=== PATIENT | male | born 1955 | race Caucasian/White ===

== ENCOUNTER 2019-05-23 16:33 | Inpatient (IN) | payer OTHER ==
[~2019-05-23 16:33] MED LIST: Iopamidol-370 76% 500 ML 1 ML ONE
[2019-05-23 17:07] LABS: #Basophils 0.1 thou/uL (0.0-0.2); #Eosinphils 0.1 thou/uL (0.0-0.7); #Lymphocytes 2.9 thou/uL (1.20-3.40); #Monocytes 1.8 thou/uL (0.11-0.59); #Neutrophils 7.2 thou/uL (1.40-6.50); %Basophils 0.8 % (0.0-1.0); %Eosinophils 0.5 % (0.0-10.0); %Lymphocytes 24.4 % (21.0-51.0); %Monocytes 14.8 % (0.0-10.0); %Neutrophils 59.6 % (42.0-75.0); Hemoglobin 13.2 g/dL (14.0-18.0); Mean Corpuscular HGB CONC 35.5 g/dL (32.0-36.0); Mean Corpuscular Hemoglobin 33.4 pg (27.0-31.0); Mean Corpuscular Volume 94.2 fL (78.0-98.0); Mean Platelet Volume 6.1 fL (7.4-10.4); Platelet Count 365 thou/uL (130-400); RBC Distribution Width 11.2 % (11.5-14.5); Red Blood Cell (RBC) Count 3.95 mill/uL (4.70-6.10)
--- NOTE | 2019-05-23 17:15 | RAD ---
Exam: Chest one view HISTORY:Cough. Comparison: None FINDINGS: Cardiac silhouette:Limited evaluation the heart due to increased opacification left hemithorax. Opaci fication is presumed to be due to pleural and parenchymal changes. Aorta: Grossly unremarkable Pulmonary vessels: Normal Costophrenic angles: Clear LUNGS: Left lower lobe opacification. Pneumothorax: None Osseous abnormalities: None IMPRESSION: 1. Pleural and parenchymal changes in the left lung base. Left lower lobe opacification may be due to atelectasis, aspiration or pneumonia. Continued surveillance is recommended. Transcribed Date/Time: 05/23/2019 5:37 PM
[2019-05-23] MEDS ORDERED: cefTRIAXone\\ROCEPHIN 2 GM VIAL ONE (17:22)
[2019-05-23] MEDS ORDERED: Azithromycin 500 MG VIAL ONE (17:22)
[2019-05-23 17:33] LABS: ALT (SGPT) 72 U/L (8-55); AST (SGOT) 93 U/L (5-34); Alkaline Phosphatase 76 U/L (40-110); Anion Gap 13 mmol/L (10-20); BUN (Urea Nitrogen) 9 mg/dL (8.4-25.7); Bilirubin, Total 1.1 mg/dL (0.2-1.2); Calc. Creatinine Clearance 0 mL/min (70-130); Calcium 8.2 mg/dL (7.8-10.44); Carbon Dioxide 25 mmol/L (23-31); Chloride 99 mmol/L (98-107); Estimated GFR-MDRD Greater than 90; Globulin 3.4 g/dL (2.4-3.5); Glucose 125 mg/dL (80-115); Potassium 3.1 mmol/L (3.5-5.1); Protein, Total 6.4 g/dL (5.8-8.1); Sodium 134 mmol/L (136-145)
--- NOTE | 2019-05-23 19:02 | CT ---
CT ANGIOGRAM OF CHEST: Date: 05-23-2019 Comparison: None. History: Dry cough, dizziness, weight loss, chest pain, nausea. Technique: Axial CT imaging at 2.5 mm intervals through the chest with IV contrast using CT angiogram protocol. Coronal and oblique sagittal 3D reformatted imaging obtained. FINDINGS: The upper abdomen demonstrates a grossly unremarkable appearance of the adrenal glands, the kidneys, the spleen, the pancreas, the liver and the gallbladder. There are a few mildly prominent nonspecific lymph nodes in the retrocrural region on the right measuring up to 6 mm. No lymphadenopathy is appreciated in the axillary regions. Mildly enlarged nodes are seen in the supe rior mediastinum measuring up to 8-9 mm. Enlarged right hilar lymph node measures 1.9 cm, enlarged salazar bcarinal lymph nodes measure up to 1.7 cm and there is a precarinal enlarged node measuring 1.1 cm. T here is a large lobulated soft tissue mass lesion centered in the left hilum which measures at least 7.3 x 5.2 cm. This mass lesion obliterates the bronchus supplying the lingula with associated lingula r volume loss. The mass also completely obliterates the left lower lobe bronchus proximally and the l eft lower lobe is completely collapsed. There is an associated moderate sized left pleural effusion. Within the remaining aerated portion of the left upper lobe there is coarse linear interstitial densi ty emanating from the left hilum extending out from the above described lobulated soft tissue mass co ncerning for lymphangitic spread of tumor. In addition, there are multiple small nodules scattered th roughout the left upper lobe anteriorly and medially measuring up to 7 mm, concerning for metastatic bronchogenic carcinoma. With respect to assessment for pulmonary arterial embolism, no evidence for p ulmonary arterial embolism is noted within the main right pulmonary artery. No central right sided pu lmonary arterial embolism. Secondary to motion artifact and timing of the contrast bolus, the distal pulmonary arterial branches are not optimally assessed within the right lower lobe and right upper lo be. On the left there is hazy decreased density within the pulmonary arterial structures supplying th e right upper and right lower lobe. Pulmonary arterial embolism within the left upper and left lower lobe cannot be fully excluded. There is no abrupt/focal filling defect and instead the relative hypoe nhancement of the pulmonary arterial structures suppling the left upper lobe demonstrates a more grad ual ill-defined configuration. This involves all pulmonary arteries supplying the left upper and left lower lobes. In addition to the possibility of this representing pulmonary embolism, possibly tumor embolism, this could also be the result of relatively slow pulmonary arterial supply into the left leta ng secondary to the lobulated left lung mass lesion. Review of the osseous structures demonstrates no discrete worrisome osseous lytic or blastic lesion. The abdominal aorta demonstrates extensive atherosclerotic calcification and there is an infrarenal a bdominal aortic aneurysm measuring up to approximately 3.3 x 3.2 cm. Multiple enlarged lymph nodes ar e noted in the natalie-hepatis, measuring up to 1.9 cm, likely on the basis of metastatic disease. IMPRESSION: 1. Large lobulated mass lesion in the left hilum obliterating the bronchus supplying the lingula and left lower lobe with associated complete collapse of the lingula and left lower lobe. This is consist ent with bronchogenic carcinoma until proven otherwise. There is evidence of metastatic disease with nodules noted elsewhere within the left upper lobe, mediastinal and right hilar lymphadenopathy, and upper abdominal lymphadenopathy. 2. Acute pulmonary arterial embolism cannot be completely excluded within the left lung as detailed a jaymie but the gradual hazy diminished enhancement involving the pulmonary arterial vasculature supplyi ng the left lower and left upper lobe is felt to most likely be on the basis of tumor infiltration an d altered hemodynamic secondary to severe obstructing mass lesion. 3. Infrarenal abdominal aortic aneursym. 4. Pleural effusions. 5. This study was reviewed in consultation with Dr. Farris, who is in agreement. Code T POS: [place]
[2019-05-23] MEDS ORDERED: Enoxaparin Sodium 100 MG/ML SYRINGE ONE (19:42)
[2019-05-23] MEDS ORDERED: D5 1/2 NS w/20 mEq KCL 1,000 ML IV SCH (22:15)
[2019-05-23] MEDS ORDERED: Senokot S 8.6-50 MG TAB PO PRN (22:16)
[2019-05-23] MEDS ORDERED: Calcium Carbonate 500 MG ChewTAB PO PRN (22:16)
--- NOTE | 2019-05-23 22:41 | HP ---
PRIMARY CARE PHYSICIAN: The patient is an inmate. CHIEF COMPLAINT: Shortness of breath with lightheadedness. HISTORY OF PRESENT ILLNESS: The patient is a 63-year-old white male, currently residing at [facility], presented to the emergency room with above complaints. Over the last 2 months, the patient has gradual worsening shortness of breath. He had a workup done in March 2019 that was consistent with lung mass. He was later transferred to a different unit. He never had a lung biopsy. His symptoms are progressively getting worse. He gets short of breath on [id number] exertion. He denies lower extremity swelling or orthopnea. There is dry cough without significant production. He denies recent immobilization or travel. No hemoptysis reported. The lightheadedness happens mainly when he is trying to stand up from a seated position. He denies any syncope. No chest pain, palpitations, diaphoresis reported. His O2 saturation by EMS was 91% on room air, that improved to 95% on 2 L nasal cannula. His temperature by EMS was 100.1. PAST MEDICAL HISTORY: 1. Hypertension. 2. Benign prostatic hypertrophy. 3. Season allergies. 4. Mild persistent asthma. PAST SURGICAL HISTORY: Appendectomy. ALLERGIES: NO KNOWN DRUG ALLERGIES. CURRENT HOME MEDICATION: Flovent 110 mcg b.i.d., Claritin 10 mg daily, ranitidine 150 mg b.i.d. SOCIAL HISTORY: The patient has a 50-pack year smoking history. He used to drink beer on a daily basis. He denies current use of alcohol or drug use. FAMILY HISTORY: Father with pancreatic cancer. REVIEW OF SYSTEMS: All other review of systems was reviewed and were found negative. PHYSICAL EXAMINATION: VITAL SIGNS: In the emergency room showed temperature 98.5, respirations 20, pulse of 120, blood pressure 105/84, O2 saturation 98% on room air. His temperature by EMS was 100.1 earlier. GENERAL: A 63-year-old male, in no apparent distress. HEENT: Head, atraumatic and normocephalic. Sclerae anicteric. Moist mucous membranes. No oral lesion. NECK: Supple. No JVD. No carotid bruit. LUNGS: Showed scattered rhonchi with rales mainly at the left base. There is decreased air entry on the left. No accessory muscle use. HEART: S1, S2 present. Regular. Tachycardic. No rubs or gallops. ABDOMEN: Soft, nontender. Bowel sounds present. EXTREMITIES: There is trace edema in bilateral lower extremity. No calf tenderness. SKIN: Warm and dry. LYMPH NODES: No palpable lymph nodes in the neck. PERIPHERAL VASCULAR: Radial pulses palpable bilaterally. MUSCULOSKELETAL: No joint swelling tenderness. LABORATORY FINDINGS: WBC 7.1 with hemoglobin 13.2, hematocrit 37.2, platelet 365. Chemistry showed sodium 134, potassium 3.1, chloride 99, bicarb 25, BUN 9, creatinine 0.65. AST of 93, ALT 72. Lactic acid 1.5. Telemetry monitoring by my review showed sinus tachycardia. Chest x-ray by my review showed pleural and parenchymal changes of the left lung base. CT angiogram of the chest showed large lobulated mass in the left hilum with questionable acute pulmonary embolism. There was also infrarenal abdominal aortic aneurysm with pleural effusion. IMPRESSION: 1. Acute hypoxic respiratory failure. 2. Suspected left lower lobe obstructive pneumonia with sepsis. 3. Left lung mass, suspected bronchogenic carcinoma. 4. Questionable acute pulmonary embolism. 5. Infrarenal abdominal aortic aneurysm. 6. Pleural effusion. 7. Mild intermittent asthma. 8. Gastroesophageal reflux disease. 9. Benign prostatic hypertrophy. 10. 50 pack-year smoking history. 11. Family history of pancreatic cancer. PLAN: The patient will be monitored on the medical floor as inpatient. We will start him on empiric antibiotics. He received ceftriaxone with azithromycin in the emergency room with 1 mg/kg of Lovenox. We will continue empiric antibiotics. Replace potassium. Keep him n.p.o. past midnight for possible bronchoscopy. Recheck labs in a.m. Nebulizer treatment. The patient understands the above plan of care. Job ID: [id number]
[2019-05-23] MEDS ORDERED: Piperacillin/Tazobactam 3.375 GM in Sodium Chloride 0.9% 100 ML IVPB SCH (22:45)
[2019-05-23] MEDS ORDERED: Potassium Chloride 20 MEQ TAB PO SCH (22:45)
[2019-05-23 23:22] LABS: Troponin I 0.108 ng/mL (< 0.028)
[2019-05-23 23:39] VITALS: BMI 27.3
[2019-05-24 05:37] LABS: Hemoglobin 11.9 g/dL (14.0-18.0); Mean Corpuscular HGB CONC 34.8 g/dL (32.0-36.0); Mean Corpuscular Volume 94.8 fL (78.0-98.0); Mean Platelet Volume 6.2 fL (7.4-10.4); Platelet Count 319 thou/uL (130-400); RBC Distribution Width 11.3 % (11.5-14.5); Red Blood Cell (RBC) Count 3.61 mill/uL (4.70-6.10); White Blood Cell (WBC) Count 9.6 thou/uL (4.8-10.8)
[2019-05-24] MEDS: Piperacillin/Tazobactam 3.375 GM in Sodium Chloride 0.9% 100 ML IVPB SCH ×3 (05:41→18:15)
[2019-05-24 06:45] LABS: ALT (SGPT) 55 U/L (8-55); AST (SGOT) 62 U/L (5-34); Albumin 2.5 g/dL (3.4-4.8); Alkaline Phosphatase 59 U/L (40-110); Anion Gap 9 mmol/L (10-20); BUN (Urea Nitrogen) 9 mg/dL (8.4-25.7); Bilirubin, Total 0.6 mg/dL (0.2-1.2); Calc. Creatinine Clearance 156 mL/min (70-130); Calcium 7.3 mg/dL (7.8-10.44); Carbon Dioxide 23 mmol/L (23-31); Chloride 108 mmol/L (98-107); Estimated GFR-MDRD Greater than 90; Glucose 127 mg/dL (80-115); Potassium 3.2 mmol/L (3.5-5.1); Protein, Total 5.5 g/dL (5.8-8.1); Sodium 137 mmol/L (136-145)
[2019-05-24 07:19] LABS: Band 1 % (5-11); Lymphocytes 22 % (21-51); MDiff Complete? YES; Monocytes 8 % (0-10); Neutrophil 68 % (42-75); Platelet Morphology Comment Appears Adequate; Polychromasia SLIGHT = 2-3 cells (100X) (0-2/hpf); Reactive Lymphocytes 1 % (0-10)
[2019-05-24] MEDS: Famotidine 20 MG TAB PO SCH ×2 (08:36→19:59)
[2019-05-24] MEDS: Saccharomyces boulardii 250 MG CAP PO SCH (08:36)
[2019-05-24] MEDS ORDERED: Lidocaine 1% PF 5 ML VIAL ONE (09:47)
[2019-05-24] MEDS ORDERED: PROPOFOL 200 MG/20 ML VIAL ONE (09:47)
[2019-05-24] MEDS ORDERED: Lidocaine 4% PF 5 ML AMP NEB SCH (10:30)
--- NOTE | 2019-05-24 10:40 | ULT ---
BILATERAL LOWER EXTREMITY VENOUS DUPLEX ULTRASOUND INCLUDING COLOR AND SPECTRAL DOPPLER IMAGING: HISTORY: Abnormal chest x-ray, cough, lung cancer, possible pulmonary artery embolism. FINDINGS: Examination performed from groin to ankle including visualized greater saphenous, common femoral, sup erficial femoral, profunda femoral, popliteal, trifurcation, and posterior tibial vein regions. Phas ic flow at all levels with normal compressibility and normal augmentation. No intraluminal thrombus. IMPRESSION: No evidence for deep venous thrombosis. POS: [facility]
--- NOTE | 2019-05-24 10:53 | CON ---
DATE OF CONSULTATION: 05/24/2019 CONSULTING PHYSICIAN: Cullen Yang MD REASON FOR CONSULTATION: Lung mass. HISTORY OF PRESENT ILLNESS: A 63-year-old [facility] inmate who was brought to the hospital with shortness of breath. He tells me he was diagnosed with lung mass in March. He has had no workup for that at all and does not know of any that was planned. In the ER here, he had a CT scan showing almost left lung collapse from endobronchial lesion in the left mainstem bronchus. He also has an associated pleural effusion. He has lost about 20 pounds of weight in the last 6 months. He denies any hemoptysis. He does have a heavy history of smoking, having quit 3 years ago when he came into the [facility]way system. PAST MEDICAL HISTORY: 1. Hypertension. 2. Asthma. 3. Chronic hepatitis C. PAST SURGICAL HISTORY: Appendectomy. ALLERGIES: NONE. MEDICATIONS: Prior to admission, 1. Flovent. 2. Claritin. 3. Ranitidine. SOCIAL HISTORY: 50+ pack-year history of smoking. Also used to drink beer on daily basis. FAMILY MEDICAL HISTORY: Remarkable for father with pancreatic cancer. REVIEW OF SYSTEMS: Twelve-point review of systems is otherwise negative. PHYSICAL EXAMINATION: VITAL SIGNS: Temperature 98.6, pulse 117, respirations 18, O2 saturation 94% on room air. He is awake, alert, in no distress. HEENT: Pupils are reactive. Sclerae are anicteric. Oropharynx clear. NECK: No adenopathy or JVD. LUNGS: Almost absent breath sounds on the left, clear on the right. CARDIOVASCULAR: S1 and S2, slightly tachycardic. ABDOMEN: Soft and nontender to palpation. No palpable liver. EXTREMITIES: No clubbing, cyanosis, or edema. LABORATORY DATA: White blood cell count 9.6, hematocrit 34.2, and platelet count 319. Sodium 137, potassium 3.2, BUN 9, creatinine 0.6, glucose 127. I reviewed the CT scan personally. The patient has extensive left hilar mass with postobstructive atelectasis. He has a left pleural effusion. He has mediastinal right hilar lymphadenopathy. ASSESSMENT: Lung mass, likely reflective of bronchogenic lung cancer. PLAN: Bronchoscopy with biopsy. Discussed risks with the patient including bleeding, infection, external pneumothorax. He agrees to proceed. Hopefully, this can be done this morning. Job ID: [id number]
[2019-05-24] MEDS ORDERED: Piperacillin/Tazobactam 3.375 GM VIAL ONE (11:19)
[2019-05-24] MEDS ORDERED: Sodium Chloride 0.9% 100 ML ONE (11:19)
[2019-05-24] MEDS ORDERED: Sodium Chloride 0.9% 10 ML ONE (11:20)
[2019-05-24] MEDS ORDERED: Fentanyl 100 MCG/2 ML VIAL ONE (11:44)
[2019-05-24] MEDS ORDERED: HYDROcodone/Chlorphen Polis 5 ML UDCUP PO SCH (14:00)
[2019-05-24] MEDS: Sodium Chloride 0.9% 1,000 ML IV SCH (14:26)
--- NOTE | 2019-05-24 15:42 | PDOC.HOSPP ---
- Subjective Encounter Date: 05/24/19 Encounter Time: 15:35 Subjective: f/u for L bronchogenic lung mass s/p bronchoscopy with bx on current Zosyn/ Zithromax. Still with SOB and low-grade fever. - Objective Vital Signs & Weight: Vital Signs (12 hours) Temp Pulse Resp BP BP Pulse Ox 05/24/19 14:42 112 H 18 97 05/24/19 14:22 99.7 F H 112 H 24 H 128/70 93 L 05/24/19 10:34 112 H 20 95 05/24/19 08:36 94 L 05/24/19 07:45 117 H 18 97 05/24/19 07:36 98.6 F 111 H 20 109/66 94 L 05/24/19 03:54 98.8 F 114 H 20 113/63 90 L Weight Admit Weight 201 lb 11.567 oz Weight 201 lb 11.567 oz Result Diagrams: 05/24/19 04:42 05/24/19 04:42 Additional Labs: Microbiology 05/24/19 12:44 Bronchial Washing Respiratory Culture - Preliminary 05/23/19 16:53 Venous blood - Right Arm Blood Culture - Preliminary Specimen has been received and culture in progress. No Growth to date. 05/23/19 16:53 Venous blood - Left Hand Blood Culture - Preliminary Specimen has been received and culture in progress. No Growth to date. Laboratory Tests 05/23/19 05/23/19 05/23/19 16:47 22:29 22:29 Sodium 134 L Potassium 3.1 L Magnesium 1.9 AST 93 H ALT 72 H Troponin I 0.108 H 05/24/19 04:42 Sodium Potassium Magnesium AST 62 H ALT 55 Troponin I Radiology Reviewed by me: Yes (CT chest - large, L bronchogenic mass likely malignant) Hospitalist ROS - Medication Medications: Active Medications Generic Name Dose Route Start Last Admin Trade Name Freq PRN Reason Stop Dose Admin Albuterol/Ipratropium 3 ml 05/23/19 22:30 05/24/19 14:42 Duoneb NEB 3 ml [id number] MASHA Administration Chlorphenir/Hydrocodone Polistirex 5 ml 05/24/19 14:00 05/24/19 14:54 Tussionex PO 05/24/19 16:00 5 ml NOW MASHA Administration Famotidine 20 mg 05/24/19 09:00 05/24/19 08:36 Pepcid PO 20 mg BID MASHA Administration Piperacillin Sod/Tazobactam 100 mls @ 200 mls/hr 05/24/19 06:00 05/24/19 13: 17 Sod 3.375 gm/ Sodium Chloride IVPB 100 mls Q6HR MASHA Administration Sodium Chloride 1,000 mls @ 50 mls/hr 05/24/19 10:30 05/24/19 14:26 Normal Saline 0.9% IV 1,000 mls .Q20H MASHA Administration Saccharomyces Boulardii 250 mg 05/24/19 09:00 05/24/19 08:36 Florastor PO 250 mg DAILY MASHA Administration - Exam General Appearance: NAD, awake alert General - other findings: alert, responsive Eye: PERRL, anicteric sclera ENT: normocephalic atraumatic, no oropharyngeal lesions Neck: supple, symmetric, no JVD, no thyromegaly Heart: RRR, no murmur, no gallops, no rubs, normal peripheral pulses Respiratory: rhonchi, tachypneic, wheezes Respiratory - other findings: + prolonged exp phase, exp wheezes, accessory muscle use Gastrointestinal: soft, non-tender, non-distended, normal bowel sounds Extremities: no cyanosis, no clubbing Skin: normal turgor, no lesions Neurological: cranial nerve grossly intact, no new deficit Musculoskeletal: normal tone, normal strength Psychiatric: normal affect, A&O x 3 Hosp A/P (1) Mass of left lung Code(s): R91.8 - OTHER NONSPECIFIC ABNORMAL FINDING OF LUNG FIELD Status: Acute Plan: s/p biopsy, likely bronchogenic carcinoma, appreciate Pulmonology assistance (2) Acute respiratory failure with hypoxia Code(s): J96.01 - ACUTE RESPIRATORY FAILURE WITH HYPOXIA Status: Acute Plan: Continue O2 supplementation, Duonebs prn (3) LLL pneumonia Code(s): J18.9 - PNEUMONIA, UNSPECIFIED ORGANISM Status: Acute Plan: Likely obstructive process given #1, continue Zosyn/Zithromax, Duonebs, add Dulera, add Solumedrol (4) Hypokalemia Code(s): E87.6 - HYPOKALEMIA Status: Acute Plan: KCL 40meq BID, serial K+ monitoring (5) Transaminitis Code(s): R74.0 - NONSPEC ELEV OF LEVELS OF TRANSAMNS & LACTIC ACID DEHYDRGNSE Status: Acute Plan: Likely due to hx of Hep C, serial monitoring - Plan continue antibiotics, psych social worker, respiratory therapy, DVT proph w/SCDs Stable currently Continue Zosyn/Zithromax Await lung bx results Medical oncology consult once bx results obtained KCL 40meq BID AM lab: CMP, CBC
--- NOTE | 2019-05-24 15:51 | OP ---
DATE OF PROCEDURE: 05/24/2019 PROCEDURE PERFORMED: Bronchoscopy. PREOPERATIVE DIAGNOSIS: Left lung mass. POSTOPERATIVE DIAGNOSIS: Left lung mass. ANESTHESIA: General through LMA. DESCRIPTION OF PROCEDURE: Time-out was taken prior to the procedure. The patient has signed informed consent prior to the procedure understanding the risks involved and agreed to proceed. The patient was placed on cardiopulmonary monitoring. Anesthesia placed an LMA after sedation had been given. An Olympus bronchoscope was placed through the LMA tube. The vocal cords were identified and inducted normally. The trachea, the right mainstem bronchus, right upper lobe, right middle lobe, and right lower lobe were normal except for some tenacious secretions present in the right lower lobe, which were suctioned and removed. The left mainstem bronchus was normal up to the bifurcation of the upper lobe and lower lobe, where hypertrophy was seen along the mucosa in the inferior aspect up to the apical posterior segment and lingular areas. There was also what appeared to be an accessory lobe, which may have been the superior segment. There was some bleeding present in the accessory lobe. Brushing was done in the accessory lobe, also in the left lingula and left upper lobe. Endobronchial biopsies were obtained from the irregular mucosa between the bifurcation in the lingular and apical posterior segment. There was some minimal bleeding. The procedure was tolerated well. He was sent to recovery in stable condition. Job ID: [id number]
[2019-05-24] MEDS: Potassium Chloride 20 MEQ TAB PO SCH (16:00)
[2019-05-24] MEDS: Azithromycin 500 MG in Sodium Chloride 0.9% 250 ML 250 ML IVPB SCH (16:01)
[2019-05-24] MEDS: methylPREDNISolone Sod Succ 40 MG VIAL IVP SCH (17:25)
[2019-05-24] MEDS: Guaifenesin DM 100-10/5 ML UDCUP PO PRN (18:15)
[2019-05-24] MEDS: Mometasone/Formoterol 120 PUFF INHALER INH SCH (19:14)
[2019-05-25] MEDS: methylPREDNISolone Sod Succ 40 MG VIAL IVP SCH ×4 (00:59→18:34)
[2019-05-25] MEDS: Piperacillin/Tazobactam 3.375 GM in Sodium Chloride 0.9% 100 ML IVPB SCH ×4 (00:59→18:34)
[2019-05-25 06:07] LABS: ALT (SGPT) 48 U/L (8-55); AST (SGOT) 49 U/L (5-34); Albumin 2.5 g/dL (3.4-4.8); Alkaline Phosphatase 57 U/L (40-110); Anion Gap 11 mmol/L (10-20); BUN (Urea Nitrogen) 8 mg/dL (8.4-25.7); Bilirubin, Total 0.6 mg/dL (0.2-1.2); Calc. Creatinine Clearance 161 mL/min (70-130); Calcium 7.6 mg/dL (7.8-10.44); Carbon Dioxide 22 mmol/L (23-31); Chloride 109 mmol/L (98-107); Estimated GFR-MDRD Greater than 90; Globulin 3.1 g/dL (2.4-3.5); Glucose 167 mg/dL (80-115); Potassium 3.6 mmol/L (3.5-5.1); Protein, Total 5.6 g/dL (5.8-8.1); Sodium 138 mmol/L (136-145)
[2019-05-25 06:35] LABS: Hemoglobin 11.7 g/dL (14.0-18.0); Mean Corpuscular HGB CONC 34.4 g/dL (32.0-36.0); Mean Corpuscular Hemoglobin 33.1 pg (27.0-31.0); Mean Corpuscular Volume 96.2 fL (78.0-98.0); Mean Platelet Volume 6.2 fL (7.4-10.4); Platelet Count 303 thou/uL (130-400); RBC Distribution Width 11.6 % (11.5-14.5); Red Blood Cell (RBC) Count 3.53 mill/uL (4.70-6.10); White Blood Cell (WBC) Count 9.9 thou/uL (4.8-10.8)
[2019-05-25] MEDS: Sodium Chloride 0.9% 1,000 ML IV SCH ×2 (07:49→18:35)
[2019-05-25 08:12] LABS: Band 5 % (5-11); Eosinophils 1 % (0-10); Lymphocytes 7 % (21-51); MDiff Complete? YES; Monocytes 4 % (0-10); Neutrophil 83 % (42-75); RBC Morphology Normal
[2019-05-25] MEDS: Mometasone/Formoterol 120 PUFF INHALER INH SCH ×2 (08:13→19:18)
[2019-05-25] MEDS: Famotidine 20 MG TAB PO SCH ×2 (08:34→20:03)
[2019-05-25] MEDS: Potassium Chloride 20 MEQ TAB PO SCH ×2 (08:34→16:13)
[2019-05-25] MEDS: Saccharomyces boulardii 250 MG CAP PO SCH (08:35)
--- NOTE | 2019-05-25 09:05 | PRG ---
DATE OF SERVICE: 05/25/2019 SUBJECTIVE: He feels okay. He had no acute complaints. Not coughing up any blood. OBJECTIVE: VITAL SIGNS: Temperature 97.7, pulse 93, respirations 20, O2 saturation 94%, and blood pressure 113/68. HEENT: Unremarkable. NECK: No adenopathy or JVD. CHEST: Diminished breath sounds left and clear right. CARDIAC: S1 and S2. Regular. ABDOMEN: Soft. EXTREMITIES: No edema. LABORATORY DATA: Sodium 138, potassium 3.6, chloride 109, CO2 of 22, BUN 8, creatinine 0.6, and calcium level 7.6. White blood cell count 9.9, hematocrit 33.9, and platelet count 303. ASSESSMENT: 1. Lung mass. 2. Status post bronchoscopy. PLAN: Awaiting pathology results. If path negative, then we will consider left-sided thoracentesis. Job ID: [id number]
[2019-05-25] MEDS: Guaifenesin DM 100-10/5 ML UDCUP PO PRN ×2 (12:01→18:53)
--- NOTE | 2019-05-25 14:24 | PQF ---
CLINICAL DOCUMENTATION IMPROVEMENT CLARIFICATION FORM: ICD-10 Updated PLEASE DO AN ADDENDUM TO THE PROGRESS NOTE WITH ANY DOCUMENTATION UPDATES OR ADDITIONS AND CARRY THROUGH TO DC SUMMARY. THANK YOU. DATE: 05/25/19 ATTN: DR. SALINAS Please exercise your independent, professional judgment in responding to the clarification form. Clinical indicators are provided on the bottom of this form for your review Please check appropriate box(s) to clarify if the following diagnosis has been ruled in or ruled out: "SEPSIS" [ ] Ruled in diagnosis [ ] Continue to treat [ ] Resolved [ x ] Ruled out diagnosis [ ] Cannot rule out diagnosis [ ] Other diagnosis [ ] Unable to determine In addition, please specify: Present on Admission (POA): [ ] Yes [ x ] No [ ] Unable to determine For continuity of documentation, please document condition throughout progress notes and discharge summary. Thank You. CLINICAL INDICATORS - SIGNS / SYMPTOMS / LABS / RESULTS AND LOCATION IN ER NOTE: "SEPSIS" PULSE 101 - 120 RR 24 TEMP 101 PER EMS H&P: "SEPSIS" WBC 05/23: 12.0 RISKS: PNEUMONIA (ER NOTE) TREATMENT: IV FLUIDS (ER-PRESENT) IV AZITHROMYCIN (ER-PRESENT) IV ROCEPHIN (ADMIN IN ER) IV ZOSYN (05/24-PRESENT) BLOOD CULTURES (05/23) BRONCHIAL WASHINGS (05/24) (This form is maintained as a part of the permanent medical record) 2014 [employer]. All Rights Reserved KALEB [email or web address] Office: [phone] [facility] HOSPITALKeya
--- NOTE | 2019-05-25 14:52 | PDOC.HOSPP ---
- Subjective Encounter Date: 05/25/19 Encounter Time: 14:50 Subjective: f/u for L-sided pulmonary mass s/p bronchoscopy with bx awaiting pathology. Receiving Zithromax/Zosyn currently. - Objective Vital Signs & Weight: Vital Signs (12 hours) Temp Pulse Resp BP BP Pulse Ox 05/25/19 12:03 97.9 F 109 H 20 141/85 H 93 L 05/25/19 10:34 111 H 16 93 L 05/25/19 08:34 94 L 05/25/19 08:11 93 15 93 L 05/25/19 07:29 97.7 F 93 20 113/68 94 L 05/25/19 04:00 98.1 F 97 20 109/65 92 L 05/25/19 03:26 95 14 95 Weight Admit Weight 201 lb 11.567 oz Weight 201 lb 11.567 oz I&O: 05/24/19 05/25/19 05/26/19 06:59 06:59 06:59 Intake Total 480 Balance 480 Result Diagrams: 05/25/19 05:16 05/25/19 05:16 Additional Labs: Microbiology 05/24/19 12:44 Bronchial Washing Respiratory Culture - Preliminary 05/23/19 16:53 Venous blood - Right Arm Blood Culture - Preliminary Specimen has been received and culture in progress. No Growth to date. 05/23/19 16:53 Venous blood - Left Hand Blood Culture - Preliminary Specimen has been received and culture in progress. No Growth to date. Laboratory Tests 05/23/19 05/23/19 05/23/19 16:47 22:29 22:29 Sodium 134 L Potassium 3.1 L Magnesium 1.9 AST 93 H ALT 72 H Troponin I 0.108 H 05/24/19 04:42 Sodium Potassium Magnesium AST 62 H ALT 55 Troponin I Hospitalist ROS - Medication Medications: Active Medications Generic Name Dose Route Start Last Admin Trade Name Freq PRN Reason Stop Dose Admin Albuterol/Ipratropium 3 ml 05/23/19 22:30 05/25/19 10:34 Duoneb NEB 3 ml [id number] MASHA Administration Famotidine 20 mg 05/24/19 09:00 05/25/19 08:34 Pepcid PO 20 mg BID MASHA Administration Guaifenesin/Dextromethorphan 15 ml 05/24/19 16:26 05/25/19 12:01 Robitussin Dm PO 15 ml Q4H PRN Administration Cough Azithromycin 500 mg/ Sodium 250 mls @ 250 mls/hr 05/24/19 17:00 05/24/19 16: 01 Chloride IVPB 250 mls 1700 MASHA Administration Piperacillin Sod/Tazobactam 100 mls @ 200 mls/hr 05/24/19 06:00 05/25/19 11: 47 Sod 3.375 gm/ Sodium Chloride IVPB 100 mls Q6HR MASHA Administration Sodium Chloride 1,000 mls @ 50 mls/hr 05/24/19 10:30 05/25/19 07:49 Normal Saline 0.9% IV Not Given .Q20H MASHA Methylprednisolone Sodium Succinate 40 mg 05/24/19 18:00 05/25/19 11:48 Solu-Medrol IVP 40 mg Q6HR MASHA Administration Mometasone Furoate/Formoterol Fumar 2 puff 05/24/19 18:30 05/25/19 08:13 Dulera 200 Mcg/5 Mcg Inhaler INH 2 puff BID-RT MASHA Administration Potassium Chloride 40 meq 05/24/19 17:00 05/25/19 08:34 K-Dur PO 40 meq BID-WM MASHA Administration Saccharomyces Boulardii 250 mg 05/24/19 09:00 05/25/19 08:35 Florastor PO 250 mg DAILY MASHA Administration - Exam General Appearance: NAD, awake alert Eye: PERRL, anicteric sclera ENT: normocephalic atraumatic, no oropharyngeal lesions Neck: supple, symmetric, no JVD, no thyromegaly Heart: RRR, no gallops, no rubs, normal peripheral pulses Respiratory - other findings: diminished and absent breath sounds in L base Gastrointestinal: soft, non-tender, non-distended, normal bowel sounds Extremities: no cyanosis, no clubbing, no edema Skin: normal turgor, no lesions Neurological: cranial nerve grossly intact, no new deficit Musculoskeletal: normal tone, normal strength Psychiatric: normal affect, A&O x 3 Hosp A/P (1) Mass of left lung Code(s): R91.8 - OTHER NONSPECIFIC ABNORMAL FINDING OF LUNG FIELD Status: Acute Plan: s/p bx and awaiting pathology, continue supportive mgmt (2) Acute respiratory failure with hypoxia Code(s): J96.01 - ACUTE RESPIRATORY FAILURE WITH HYPOXIA Status: Acute Plan: Improved with Duonebs, O2, see below for further mgmt (3) LLL pneumonia Code(s): J18.9 - PNEUMONIA, UNSPECIFIED ORGANISM Status: Acute Plan: Continue Zithromax/Zosyn, Duonebs, Solumedrol (4) Hypokalemia Code(s): E87.6 - HYPOKALEMIA Status: Acute Plan: KCL supplementation (5) Transaminitis Code(s): R74.0 - NONSPEC ELEV OF LEVELS OF TRANSAMNS & LACTIC ACID DEHYDRGNSE Status: Acute - Plan continue antibiotics, business services coordinator, respiratory therapy, out of bed/ambulate , DVT proph w/SCDs Stable currently Continue Zosyn/Zithromax Await lung bx results Medical oncology consult once bx results obtained KCL 40meq BID Continue Solumedrol AM lab: BMP
[2019-05-25] MEDS: Azithromycin 500 MG in Sodium Chloride 0.9% 250 ML 250 ML IVPB SCH (16:13)
[2019-05-26] MEDS: Piperacillin/Tazobactam 3.375 GM in Sodium Chloride 0.9% 100 ML IVPB SCH ×4 (00:37→18:08)
[2019-05-26] MEDS: methylPREDNISolone Sod Succ 40 MG VIAL IVP SCH ×4 (00:37→18:08)
[2019-05-26 06:43] LABS: Anion Gap 12 mmol/L (10-20); BUN (Urea Nitrogen) 13 mg/dL (8.4-25.7); Calc. Creatinine Clearance 156 mL/min (70-130); Carbon Dioxide 21 mmol/L (23-31); Chloride 111 mmol/L (98-107); Estimated GFR-MDRD Greater than 90; Glucose 174 mg/dL (80-115); Sodium 140 mmol/L (136-145)
[2019-05-26] MEDS: Mometasone/Formoterol 120 PUFF INHALER INH SCH ×2 (07:12→18:30)
[2019-05-26] MEDS: Sodium Chloride 0.9% 1,000 ML IV SCH ×2 (07:34→18:15)
[2019-05-26] MEDS: Famotidine 20 MG TAB PO SCH ×2 (08:21→20:44)
[2019-05-26] MEDS: Potassium Chloride 20 MEQ TAB PO SCH ×2 (08:21→16:52)
[2019-05-26] MEDS: Saccharomyces boulardii 250 MG CAP PO SCH (08:21)
--- NOTE | 2019-05-26 09:57 | PRG ---
DATE OF SERVICE: 05/26/2019 Mr. lBock's biopsy came back adenocarcinoma. The patient was informed of the results and I also discussed the results with Dr. Medina. 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 In any event, this is a disease that will have to be treated by Medical Oncology. I am not sure what the resources are through [facility], but the workup from my end is complete. I will defer to the hospitalist for further disposition. Job ID: [id number]
--- NOTE | 2019-05-26 11:54 | PDOC.HOSPP ---
- Subjective Encounter Date: 05/26/19 Encounter Time: 11:40 Subjective: f/u for L lung mass with bx showing adenocarcinoma. Continues to receive Zithromax/Zosyn/Duonebs/Solumedrol. SOB pronounced with any movement. - Objective Vital Signs & Weight: Vital Signs (12 hours) Temp Pulse Resp BP BP Pulse Ox 05/26/19 10:39 101 H 18 92 L 05/26/19 08:00 92 L 05/26/19 07:48 98 F 108 H 29 H 156/93 H 92 L 05/26/19 07:03 106 H 20 94 L 05/26/19 04:00 98.0 F 104 H 20 165/80 H 92 L 05/26/19 02:28 106 H 28 H 90 L Weight Admit Weight 201 lb 11.567 oz Weight 201 lb 11.567 oz I&O: 05/25/19 05/26/19 05/27/19 06:59 06:59 06:59 Intake Total 480 2095 Balance 480 2095 Result Diagrams: 05/25/19 05:16 05/26/19 05:51 Additional Labs: Microbiology 05/24/19 12:44 Bronchial Washing Respiratory Culture - Preliminary 05/23/19 16:53 Venous blood - Right Arm Blood Culture - Preliminary Specimen has been received and culture in progress. No Growth to date. 05/23/19 16:53 Venous blood - Left Hand Blood Culture - Preliminary Specimen has been received and culture in progress. No Growth to date. Laboratory Tests 05/23/19 05/23/19 05/23/19 16:47 22:29 22:29 Sodium 134 L Potassium 3.1 L Magnesium 1.9 AST 93 H ALT 72 H Troponin I 0.108 H 05/24/19 04:42 Sodium Potassium Magnesium AST 62 H ALT 55 Troponin I Hospitalist ROS - Medication Medications: Active Medications Generic Name Dose Route Start Last Admin Trade Name Freq PRN Reason Stop Dose Admin Albuterol/Ipratropium 3 ml 05/23/19 22:30 05/26/19 10:39 Duoneb NEB 3 ml [id number] MASHA Administration Famotidine 20 mg 05/24/19 09:00 05/26/19 08:21 Pepcid PO 20 mg BID MASHA Administration Guaifenesin/Dextromethorphan 15 ml 05/24/19 16:26 05/25/19 18:53 Robitussin Dm PO 15 ml Q4H PRN Administration Cough Azithromycin 500 mg/ Sodium 250 mls @ 250 mls/hr 05/24/19 17:00 05/25/19 16: 13 Chloride IVPB 250 mls 1700 MASHA Administration Piperacillin Sod/Tazobactam 100 mls @ 200 mls/hr 05/24/19 06:00 05/26/19 11: 24 Sod 3.375 gm/ Sodium Chloride IVPB 100 mls Q6HR MASHA Administration Sodium Chloride 1,000 mls @ 50 mls/hr 05/24/19 10:30 05/26/19 07:34 Normal Saline 0.9% IV Not Given .Q20H MASHA Methylprednisolone Sodium Succinate 40 mg 05/24/19 18:00 05/26/19 11:25 Solu-Medrol IVP 40 mg Q6HR MASHA Administration Mometasone Furoate/Formoterol Fumar 2 puff 05/24/19 18:30 05/26/19 07:12 Dulera 200 Mcg/5 Mcg Inhaler INH 2 puff BID-RT MASHA Administration Potassium Chloride 40 meq 05/24/19 17:00 05/26/19 08:21 K-Dur PO 40 meq BID-WM MASHA Administration Saccharomyces Boulardii 250 mg 05/24/19 09:00 05/26/19 08:21 Florastor PO 250 mg DAILY MASHA Administration - Exam General Appearance: NAD, awake alert Eye: PERRL, anicteric sclera ENT: normocephalic atraumatic, no oropharyngeal lesions ENT - other findings: multiple missing teeth, dental caries Neck: supple, symmetric, no JVD, no thyromegaly Heart: RRR, no murmur, no gallops, no rubs, normal peripheral pulses Respiratory: no ronchi, tachypneic Respiratory - other findings: diminished airflow L hemithorax, exp wheezes Gastrointestinal: soft, non-tender, non-distended, normal bowel sounds, no palpable masses Extremities: no cyanosis, no clubbing, no edema Skin: normal turgor, no lesions Neurological: cranial nerve grossly intact, no new deficit Musculoskeletal: normal tone, normal strength Psychiatric: normal affect, A&O x 3 Hosp A/P (1) Adenocarcinoma of lung Code(s): C34.90 - MALIGNANT NEOPLASM OF UNSP PART OF UNSP BRONCHUS OR LUNG Status: Acute Qualifiers: Laterality: left Qualified Code(s): C34.92 - Malignant neoplasm of unspecified part of left bronchus or lung Plan: Likely metastastic process involving R hilar region and potential adenopathy in abd, will need referral to [facility] for medical oncology follow up and definitive staging (2) Acute respiratory failure with hypoxia Code(s): J96.01 - ACUTE RESPIRATORY FAILURE WITH HYPOXIA Status: Acute Plan: Persistent, continue O2 support, Duonebs (3) LLL pneumonia Code(s): J18.9 - PNEUMONIA, UNSPECIFIED ORGANISM Status: Acute Plan: Continue Zosyn/Zithromax, Duonebs, O2 (4) Hypokalemia Code(s): E87.6 - HYPOKALEMIA Status: Acute Plan: Resolved (5) Transaminitis Code(s): R74.0 - NONSPEC ELEV OF LEVELS OF TRANSAMNS & LACTIC ACID DEHYDRGNSE Status: Acute - Plan continue antibiotics, social work assistant, respiratory therapy, DVT proph w/SCDs Stable currently Continue Zosyn/Zithromax CM for coordination of care through [facility] Medical oncology follow up at [facility] KCL 40meq BID Continue Solumedrol Likely will need outpt O2
[2019-05-26] MEDS: Azithromycin 500 MG in Sodium Chloride 0.9% 250 ML 250 ML IVPB SCH (16:52)
[2019-05-26] MEDS: Guaifenesin DM 100-10/5 ML UDCUP PO PRN (18:08)
[2019-05-27] MEDS: Piperacillin/Tazobactam 3.375 GM in Sodium Chloride 0.9% 100 ML IVPB SCH ×4 (00:27→17:11)
[2019-05-27] MEDS: methylPREDNISolone Sod Succ 40 MG VIAL IVP SCH ×4 (00:27→17:11)
[2019-05-27] MEDS: Mometasone/Formoterol 120 PUFF INHALER INH SCH ×2 (07:24→19:32)
[2019-05-27] MEDS: Famotidine 20 MG TAB PO SCH ×2 (08:08→20:48)
[2019-05-27] MEDS: Potassium Chloride 20 MEQ TAB PO SCH ×2 (08:08→17:11)
[2019-05-27] MEDS: Saccharomyces boulardii 250 MG CAP PO SCH (08:08)
--- NOTE | 2019-05-27 09:08 | PRG ---
DATE OF SERVICE: 05/27/2019 SUBJECTIVE: Mr. Block is about the same. He is dyspneic with any kind of exertion. OBJECTIVE: VITAL SIGNS: Temperature 97.8, pulse 102, respirations 20, O2 saturation 95%, blood pressure 158/93. HEENT: Unremarkable. NECK: No adenopathy or JVD. CHEST: Diminished breath sounds, left compared to right. CARDIAC: S1, S2. Regular. ABDOMEN: Soft. EXTREMITIES: No edema. ASSESSMENT: Lung cancer-likely stage IIIB or IV. PLAN: Needs Medical Oncology consultation or followup. No further recommendations at this time. Job ID: [id number]
[2019-05-27] MEDS: Sodium Chloride 0.9% 1,000 ML IV SCH ×2 (10:15→20:49)
[2019-05-27] MEDS: Azithromycin 500 MG in Sodium Chloride 0.9% 250 ML 250 ML IVPB SCH (18:03)
[2019-05-27] MEDS: Guaifenesin DM 100-10/5 ML UDCUP PO PRN (19:00)
--- NOTE | 2019-05-27 19:15 | PDOC.HOSPP ---
- Subjective Encounter Date: 05/27/19 Encounter Time: 19:15 Subjective: f/u for LLL bronchogenic adenocarcinoma and PNA currently receiving Zithromax/ Zosyn/Solumedrol. Remains SOB with minimal exertion. - Objective Vital Signs & Weight: Vital Signs (12 hours) Temp Pulse Resp BP Pulse Ox 05/27/19 15:36 97.8 F 97 20 163/92 H 94 L 05/27/19 14:14 100 16 05/27/19 11:22 98.3 F 100 26 H 151/86 H 94 L 05/27/19 10:45 104 H 16 05/27/19 08:00 95 05/27/19 07:44 97.8 F 102 H 28 H 158/93 H 95 05/27/19 07:26 109 H 16 Weight Admit Weight 201 lb 11.567 oz Weight 201 lb 11.567 oz I&O: 05/26/19 05/27/19 05/28/19 06:59 06:59 06:59 Intake Total 2095 4342 1909 Output Total 350 Balance 2095 4342 1559 Result Diagrams: 05/25/19 05:16 05/26/19 05:51 Additional Labs: Microbiology 05/24/19 12:44 Bronchial Washing Respiratory Culture - Preliminary 05/23/19 16:53 Venous blood - Right Arm Blood Culture - Preliminary Specimen has been received and culture in progress. No Growth to date. 05/23/19 16:53 Venous blood - Left Hand Blood Culture - Preliminary Specimen has been received and culture in progress. No Growth to date. Laboratory Tests 05/23/19 05/23/19 05/23/19 16:47 22:29 22:29 Sodium 134 L Potassium 3.1 L Magnesium 1.9 AST 93 H ALT 72 H Troponin I 0.108 H 05/24/19 04:42 Sodium Potassium Magnesium AST 62 H ALT 55 Troponin I Hospitalist ROS - Medication Medications: Active Medications Generic Name Dose Route Start Last Admin Trade Name Freq PRN Reason Stop Dose Admin Albuterol/Ipratropium 3 ml 05/23/19 22:30 05/27/19 14:14 Duoneb NEB 3 ml [id number] MASHA Administration Famotidine 20 mg 05/24/19 09:00 05/27/19 08:08 Pepcid PO 20 mg BID MASHA Administration Guaifenesin/Dextromethorphan 15 ml 05/24/19 16:26 05/27/19 19:00 Robitussin Dm PO 15 ml Q4H PRN Administration Cough Azithromycin 500 mg/ Sodium 250 mls @ 250 mls/hr 05/24/19 17:00 05/27/19 18: 03 Chloride IVPB 250 mls 1700 MASHA Administration Piperacillin Sod/Tazobactam 100 mls @ 200 mls/hr 05/24/19 06:00 05/27/19 17: 11 Sod 3.375 gm/ Sodium Chloride IVPB 100 mls Q6HR MASHA Administration Sodium Chloride 1,000 mls @ 50 mls/hr 05/24/19 10:30 05/27/19 10:15 Normal Saline 0.9% IV Not Given .Q20H MASHA Methylprednisolone Sodium Succinate 40 mg 05/24/19 18:00 05/27/19 17:11 Solu-Medrol IVP 40 mg Q6HR MASHA Administration Mometasone Furoate/Formoterol Fumar 2 puff 05/24/19 18:30 05/27/19 07:24 Dulera 200 Mcg/5 Mcg Inhaler INH 2 puff BID-RT MASHA Administration Potassium Chloride 40 meq 05/24/19 17:00 05/27/19 17:11 K-Dur PO 40 meq BID-WM MASHA Administration Saccharomyces Boulardii 250 mg 05/24/19 09:00 05/27/19 08:08 Florastor PO 250 mg DAILY MASHA Administration - Exam General Appearance: NAD, awake alert Eye: PERRL, anicteric sclera ENT: normocephalic atraumatic, no oropharyngeal lesions Neck: supple, symmetric, no JVD, no thyromegaly, no lymphadenopathy Heart: RRR, no murmur, no gallops, no rubs, normal peripheral pulses Respiratory: rhonchi, tachypneic Respiratory - other findings: R basilar segment with minimal sounds, exp wheeze bilat Gastrointestinal: soft, non-tender, non-distended, normal bowel sounds, no palpable masses Extremities: no cyanosis, no clubbing, no edema Skin: normal turgor, no lesions Neurological: cranial nerve grossly intact, no new deficit Musculoskeletal: normal tone, normal strength Psychiatric: normal affect, A&O x 3 Hosp A/P (1) Adenocarcinoma of lung Code(s): C34.90 - MALIGNANT NEOPLASM OF UNSP PART OF UNSP BRONCHUS OR LUNG Status: Acute Qualifiers: Laterality: left Qualified Code(s): C34.92 - Malignant neoplasm of unspecified part of left bronchus or lung Plan: Will need outpt follow through [facility] for intermediate mgmt and chemo/surgery (2) Acute respiratory failure with hypoxia Code(s): J96.01 - ACUTE RESPIRATORY FAILURE WITH HYPOXIA Status: Acute Plan: Continue pulmonary support, Duonebs/Solumedrol/O2 (3) LLL pneumonia Code(s): J18.9 - PNEUMONIA, UNSPECIFIED ORGANISM Status: Acute Plan: Continue Zithromax/Zosyn/Solumedrol (4) Hypokalemia Code(s): E87.6 - HYPOKALEMIA Status: Acute Plan: Improved, serial K+ monitoring (5) Transaminitis Code(s): R74.0 - NONSPEC ELEV OF LEVELS OF TRANSAMNS & LACTIC ACID DEHYDRGNSE Status: Acute - Plan continue antibiotics, social work therapist, respiratory therapy, out of bed/ambulate , DVT proph w/SCDs Stable currently Continue Zosyn/Zithromax CM for coordination of care through [facility] Medical oncology follow up at [facility] KCL 40meq BID Continue Solumedrol IV Likely will need outpt O2
[2019-05-28] MEDS: methylPREDNISolone Sod Succ 40 MG VIAL IVP SCH ×5 (00:04→23:37)
[2019-05-28] MEDS: Piperacillin/Tazobactam 3.375 GM in Sodium Chloride 0.9% 100 ML IVPB SCH ×5 (00:04→23:37)
[2019-05-28] MEDS: Guaifenesin DM 100-10/5 ML UDCUP PO PRN ×3 (05:51→19:52)
[2019-05-28] MEDS: Mometasone/Formoterol 120 PUFF INHALER INH SCH ×2 (07:24→19:27)
[2019-05-28] MEDS: Famotidine 20 MG TAB PO SCH ×2 (07:55→19:52)
[2019-05-28] MEDS: Potassium Chloride 20 MEQ TAB PO SCH (07:55)
[2019-05-28] MEDS: Saccharomyces boulardii 250 MG CAP PO SCH (07:56)
[2019-05-28 08:13] LABS: Fungus Stain Final report (.)
--- NOTE | 2019-05-28 08:50 | PDOC.HOSPP ---
- Subjective Encounter Date: 05/28/19 Encounter Time: 08:30 Subjective: f/u for lung adenocarcinoma not currently treated with associated PNA/effusion. States some increased cough this am. No fever or chills. - Objective Vital Signs & Weight: Vital Signs (12 hours) Temp Pulse Resp BP BP Pulse Ox 05/28/19 07:53 97.5 F L 100 149/90 H 94 L 05/28/19 07:22 92 16 94 L 05/28/19 04:00 98.1 F 92 20 159/90 H 94 L 05/28/19 02:13 12 05/27/19 22:26 100 16 Weight Admit Weight 201 lb 11.567 oz Weight 201 lb 11.567 oz I&O: 05/27/19 05/28/19 05/29/19 06:59 06:59 06:59 Intake Total 4342 3059 Output Total 350 Balance 4342 2709 Result Diagrams: 05/25/19 05:16 05/26/19 05:51 Additional Labs: Microbiology 05/24/19 12:44 Bronchial Washing Respiratory Culture - Preliminary 05/23/19 16:53 Venous blood - Right Arm Blood Culture - Preliminary Specimen has been received and culture in progress. No Growth to date. 05/23/19 16:53 Venous blood - Left Hand Blood Culture - Preliminary Specimen has been received and culture in progress. No Growth to date. Laboratory Tests 05/23/19 05/23/19 05/23/19 16:47 22:29 22:29 Sodium 134 L Potassium 3.1 L Magnesium 1.9 AST 93 H ALT 72 H Troponin I 0.108 H 05/24/19 04:42 Sodium Potassium Magnesium AST 62 H ALT 55 Troponin I Hospitalist ROS - Medication Medications: Active Medications Generic Name Dose Route Start Last Admin Trade Name Freq PRN Reason Stop Dose Admin Albuterol/Ipratropium 3 ml 05/23/19 22:30 05/28/19 07:22 Duoneb NEB 3 ml [id number] MASHA Administration Famotidine 20 mg 05/24/19 09:00 05/28/19 07:55 Pepcid PO 20 mg BID MASHA Administration Guaifenesin/Dextromethorphan 15 ml 05/24/19 16:26 05/28/19 05:51 Robitussin Dm PO 15 ml Q4H PRN Administration Cough Azithromycin 500 mg/ Sodium 250 mls @ 250 mls/hr 05/24/19 17:00 05/27/19 18: 03 Chloride IVPB 250 mls 1700 MASHA Administration Piperacillin Sod/Tazobactam 100 mls @ 200 mls/hr 05/24/19 06:00 05/28/19 05: 42 Sod 3.375 gm/ Sodium Chloride IVPB 100 mls Q6HR MASHA Administration Sodium Chloride 1,000 mls @ 50 mls/hr 05/24/19 10:30 05/27/19 20:49 Normal Saline 0.9% IV 1,000 mls .Q20H MASHA Administration Methylprednisolone Sodium Succinate 40 mg 05/24/19 18:00 05/28/19 05:42 Solu-Medrol IVP 40 mg Q6HR MASHA Administration Mometasone Furoate/Formoterol Fumar 2 puff 05/24/19 18:30 05/28/19 07:24 Dulera 200 Mcg/5 Mcg Inhaler INH 2 puff BID-RT MASHA Administration Potassium Chloride 40 meq 05/24/19 17:00 05/28/19 07:55 K-Dur PO 40 meq BID-WM MASHA Administration Saccharomyces Boulardii 250 mg 05/24/19 09:00 05/28/19 07:56 Florastor PO 250 mg DAILY MASHA Administration - Exam General Appearance: NAD, awake alert Eye: PERRL, anicteric sclera ENT: normocephalic atraumatic, no oropharyngeal lesions Neck: supple, symmetric, no JVD, no thyromegaly, no lymphadenopathy Heart: RRR, no murmur, no gallops, no rubs, normal peripheral pulses Respiratory - other findings: diminished in L lung field, exp wheezes, coarse sounds bilat Gastrointestinal: soft, non-tender, non-distended, normal bowel sounds, no palpable masses Extremities: no cyanosis, no clubbing, no edema Skin: normal turgor, no lesions Neurological: cranial nerve grossly intact, no new deficit Musculoskeletal: normal tone, normal strength, no muscle wasting Psychiatric: normal affect, A&O x 3 Hosp A/P (1) Adenocarcinoma of lung Code(s): C34.90 - MALIGNANT NEOPLASM OF UNSP PART OF UNSP BRONCHUS OR LUNG Status: Acute Qualifiers: Laterality: left Qualified Code(s): C34.92 - Malignant neoplasm of unspecified part of left bronchus or lung Plan: Plan for transfer to [facility] for further staging/planning treatment for lung CA (2) Acute respiratory failure with hypoxia Code(s): J96.01 - ACUTE RESPIRATORY FAILURE WITH HYPOXIA Status: Acute Plan: Continue O2 supplementation @ 2L/min NC, Duonebs, Prednisone (3) LLL pneumonia Code(s): J18.9 - PNEUMONIA, UNSPECIFIED ORGANISM Status: Acute Plan: Transition to Levaquin for outpatient mgmt (4) Hypokalemia Code(s): E87.6 - HYPOKALEMIA Status: Acute Plan: Improved, d/c KCL supplements (5) Transaminitis Code(s): R74.0 - NONSPEC ELEV OF LEVELS OF TRANSAMNS & LACTIC ACID DEHYDRGNSE Status: Acute - Plan continue antibiotics, home health care social worker, respiratory therapy, out of bed/ambulate , DVT proph w/SCDs Stable currently Continue Zosyn/Zithromax with plan to transition to Levaquin at d/c CM for coordination of care through [facility] Medical oncology follow up at [facility] d/c KCL Continue Solumedrol IV while inpt Setup for outpt O2
[2019-05-28] MEDS: Azithromycin 500 MG in Sodium Chloride 0.9% 250 ML 250 ML IVPB SCH (16:29)
[2019-05-28] MEDS: Sodium Chloride 0.9% 1,000 ML IV SCH ×2 (16:32→19:54)
[2019-05-28] MEDS: Acetaminophen 325 MG TAB PO PRN (18:05)
[2019-05-29] MEDS: Guaifenesin DM 100-10/5 ML UDCUP PO PRN ×4 (02:43→20:43)
[2019-05-29] MEDS: Piperacillin/Tazobactam 3.375 GM in Sodium Chloride 0.9% 100 ML IVPB SCH ×3 (05:27→17:48)
[2019-05-29] MEDS: methylPREDNISolone Sod Succ 40 MG VIAL IVP SCH ×3 (05:27→17:49)
[2019-05-29] MEDS: Mometasone/Formoterol 120 PUFF INHALER INH SCH ×2 (06:29→19:00)
[2019-05-29] MEDS: Famotidine 20 MG TAB PO SCH ×2 (08:59→20:43)
[2019-05-29] MEDS: Saccharomyces boulardii 250 MG CAP PO SCH (08:59)
[2019-05-29] MEDS: Sodium Chloride 0.9% 1,000 ML IV SCH (11:35)
--- NOTE | 2019-05-29 15:10 | PDOC.HOSPP ---
- Subjective Encounter Date: 05/29/19 Encounter Time: 11:30 Subjective: pt quite wheezing at rest. staffs nearby. - Objective Vital Signs & Weight: Vital Signs (12 hours) Temp Pulse Resp BP BP Pulse Ox 05/29/19 13:41 110 H 16 94 L 05/29/19 10:14 91 16 92 L 05/29/19 08:00 98.4 F 110 H 20 172/94 H 90 L 05/29/19 06:26 96 16 97 05/29/19 03:55 97.8 F 89 16 152/82 H 95 Weight Admit Weight 201 lb 11.567 oz Weight 201 lb 11.567 oz I&O: 05/28/19 05/29/19 05/30/19 06:59 06:59 06:59 Intake Total 3059 3000 Output Total 350 850 Balance 2709 2150 Result Diagrams: 05/25/19 05:16 05/26/19 05:51 Hospitalist ROS - Medication Medications: Active Medications Generic Name Dose Route Start Last Admin Trade Name Freq PRN Reason Stop Dose Admin Acetaminophen 650 mg 05/23/19 22:16 05/28/19 18:05 Tylenol PO 650 mg Q4H PRN Administration Headache/Fever/Mild Pain (1-3) Albuterol/Ipratropium 3 ml 05/23/19 22:30 05/29/19 13:41 Duoneb NEB 3 ml [id number] MASHA Administration Famotidine 20 mg 05/24/19 09:00 05/29/19 08:59 Pepcid PO 20 mg BID MASHA Administration Guaifenesin/Dextromethorphan 15 ml 05/24/19 16:26 05/29/19 11:35 Robitussin Dm PO 15 ml Q4H PRN Administration Cough Azithromycin 500 mg/ Sodium 250 mls @ 250 mls/hr 05/24/19 17:00 05/28/19 16: 29 Chloride IVPB 250 mls 1700 MASHA Administration Piperacillin Sod/Tazobactam 100 mls @ 200 mls/hr 05/24/19 06:00 05/29/19 11: 36 Sod 3.375 gm/ Sodium Chloride IVPB 100 mls Q6HR MASHA Administration Sodium Chloride 1,000 mls @ 50 mls/hr 05/24/19 10:30 05/29/19 11:35 Normal Saline 0.9% IV 1,000 mls .Q20H MASHA Administration Methylprednisolone Sodium Succinate 40 mg 05/24/19 18:00 05/29/19 11:36 Solu-Medrol IVP 40 mg Q6HR MASHA Administration Mometasone Furoate/Formoterol Fumar 2 puff 05/24/19 18:30 05/29/19 06:29 Dulera 200 Mcg/5 Mcg Inhaler INH 2 puff BID-RT MASHA Administration Saccharomyces Boulardii 250 mg 05/24/19 09:00 05/29/19 08:59 Florastor PO 250 mg DAILY MASHA Administration - Exam General Appearance: NAD, awake alert Eye: PERRL, anicteric sclera ENT: normocephalic atraumatic Neck: supple, symmetric Heart: RRR Respiratory: rhonchi, tachypneic, wheezes Gastrointestinal: soft, normal bowel sounds Extremities: no cyanosis Hosp A/P - Plan (1) Adenocarcinoma of lung Code(s): C34.90 - MALIGNANT NEOPLASM OF UNSP PART OF UNSP BRONCHUS OR LUNG Status: Acute Qualifiers: Laterality: left Qualified Code(s): C34.92 - Malignant neoplasm of unspecified part of left bronchus or lung Plan: Plan for transfer to [facility] for further staging/planning treatment for lung CA (2) Acute respiratory failure with hypoxia Code(s): J96.01 - ACUTE RESPIRATORY FAILURE WITH HYPOXIA Status: Acute Plan: Continue O2 supplementation @ 2L/min NC, Duonebs, Prednisone (3) LLL pneumonia Code(s): J18.9 - PNEUMONIA, UNSPECIFIED ORGANISM Status: Acute Plan: Transition to Levaquin for outpatient mgmt (4) Hypokalemia Code(s): E87.6 - HYPOKALEMIA Status: Acute Plan: Improved, d/c KCL supplements (5) Transaminitis Code(s): R74.0 - NONSPEC ELEV OF LEVELS OF TRANSAMNS & LACTIC ACID DEHYDRGNSE Status: Acute - Plan continue antibiotics, rn social services, respiratory therapy, out of bed/ambulate , DVT proph w/SCDs Stable currently Continue Zosyn/Zithromax with plan to transition to Levaquin at d/c CM for coordination of care through [facility] Medical oncology follow up at [facility] Continue Solumedrol IV while inpt-- as still ongoing wheezing. Setup for outpt O2
[2019-05-29] MEDS: Acetaminophen 325 MG TAB PO PRN ×2 (16:46→20:43)
[2019-05-29] MEDS: Azithromycin 500 MG in Sodium Chloride 0.9% 250 ML 250 ML IVPB SCH (16:46)
[2019-05-30] MEDS: Piperacillin/Tazobactam 3.375 GM in Sodium Chloride 0.9% 100 ML IVPB SCH ×3 (00:22→12:42)
[2019-05-30] MEDS: methylPREDNISolone Sod Succ 40 MG VIAL IVP SCH ×3 (00:22→12:42)
[2019-05-30] MEDS: Mometasone/Formoterol 120 PUFF INHALER INH SCH ×2 (06:41→19:11)
[2019-05-30] MEDS: Sodium Chloride 0.9% 1,000 ML IV SCH (06:42)
[2019-05-30] MEDS: Famotidine 20 MG TAB PO SCH ×2 (08:34→21:12)
[2019-05-30] MEDS: Saccharomyces boulardii 250 MG CAP PO SCH (08:35)
[2019-05-30] MEDS: Acetaminophen 325 MG TAB PO PRN ×2 (09:20→16:07)
[2019-05-30] MEDS: Guaifenesin DM 100-10/5 ML UDCUP PO PRN ×3 (09:20→21:13)
[2019-05-30] MEDS ORDERED: predniSONE 20 MG TAB PO SCH (12:45)
--- NOTE | 2019-05-30 16:25 | PDOC.HOSPP ---
- Subjective Encounter Date: 05/30/19 Encounter Time: 11:25 Subjective: pt slept ok, not much cough last night. wbcs trending down. no other c/o. - Objective Vital Signs & Weight: Vital Signs (12 hours) Temp Pulse Resp BP Pulse Ox 05/30/19 10:21 78 14 94 L 05/30/19 07:44 97.6 F 80 16 170/97 H 94 L 05/30/19 06:28 80 14 94 L Weight Admit Weight 201 lb 11.567 oz Weight 201 lb 11.567 oz I&O: 05/29/19 05/30/19 05/31/19 06:59 06:59 06:59 Intake Total 3000 Output Total 850 Balance 2150 Result Diagrams: 05/25/19 05:16 05/26/19 05:51 Hospitalist ROS - Medication Medications: Active Medications Generic Name Dose Route Start Last Admin Trade Name Freq PRN Reason Stop Dose Admin Acetaminophen 650 mg 05/23/19 22:16 05/30/19 16:07 Tylenol PO 650 mg Q4H PRN Administration Headache/Fever/Mild Pain (1-3) Albuterol/Ipratropium 3 ml 05/23/19 22:30 05/30/19 13:46 Duoneb NEB 3 ml [id number] MASHA Administration Famotidine 20 mg 05/24/19 09:00 05/30/19 08:34 Pepcid PO 20 mg BID MASHA Administration Guaifenesin/Dextromethorphan 15 ml 05/24/19 16:26 05/30/19 16:07 Robitussin Dm PO 15 ml Q4H PRN Administration Cough Sodium Chloride 1,000 mls @ 50 mls/hr 05/24/19 10:30 05/30/19 06:42 Normal Saline 0.9% IV Not Given .Q20H MASHA Mometasone Furoate/Formoterol Fumar 2 puff 05/24/19 18:30 05/30/19 06:41 Dulera 200 Mcg/5 Mcg Inhaler INH 2 puff BID-RT MASHA Administration Saccharomyces Boulardii 250 mg 05/24/19 09:00 05/30/19 08:35 Florastor PO 250 mg DAILY MASHA Administration - Exam General Appearance: NAD, awake alert Eye: PERRL, anicteric sclera ENT: normocephalic atraumatic Neck: supple, symmetric, no thyromegaly Heart: RRR Respiratory: normal chest expansion, no tachypnea, rhonchi, tachypneic Gastrointestinal: soft Neurological: cranial nerve grossly intact, no focal deficits Psychiatric: normal affect, oriented to place Hosp A/P - Plan (1) Adenocarcinoma of lung Code(s): C34.90 - MALIGNANT NEOPLASM OF UNSP PART OF UNSP BRONCHUS OR LUNG Status: Acute Qualifiers: Laterality: left Qualified Code(s): C34.92 - Malignant neoplasm of unspecified part of left bronchus or lung Plan: Plan for transfer to [facility] for further staging/planning treatment for lung CA (2) Acute respiratory failure with hypoxia Code(s): J96.01 - ACUTE RESPIRATORY FAILURE WITH HYPOXIA Status: Acute Plan: Continue O2 supplementation @ 2L/min NC, Duonebs, Prednisone (3) LLL pneumonia Code(s): J18.9 - PNEUMONIA, UNSPECIFIED ORGANISM Status: Acute Plan: Transition to Levaquin for outpatient mgmt (4) Hypokalemia Code(s): E87.6 - HYPOKALEMIA Status: Acute Plan: Improved, d/c KCL supplements (5) Transaminitis Code(s): R74.0 - NONSPEC ELEV OF LEVELS OF TRANSAMNS & LACTIC ACID DEHYDRGNSE Status: Acute - Plan continue antibiotics, social worker health services, respiratory therapy, out of bed/ambulate , DVT proph w/SCDs Stable currently Continue Zosyn/Zithromax with plan to transition to Levaquin at d/c CM for coordination of care through [facility] Medical oncology follow up at [facility] Continue Solumedrol IV while inpt-- as still ongoing wheezing. Setup for outpt O2. -continue the above care -onc. consult at [facility] - pending transfer to [facility], tomorrow?
[2019-05-31] MEDS: Sodium Chloride 0.9% 1,000 ML IV SCH ×3 (05:30→21:05)
[2019-05-31] MEDS: Guaifenesin DM 100-10/5 ML UDCUP PO PRN ×4 (06:07→23:00)
[2019-05-31] MEDS: Acetaminophen 325 MG TAB PO PRN ×3 (06:11→17:51)
[2019-05-31] MEDS: Mometasone/Formoterol 120 PUFF INHALER INH SCH ×2 (07:26→18:43)
[2019-05-31] MEDS: Saccharomyces boulardii 250 MG CAP PO SCH (08:47)
[2019-05-31] MEDS: predniSONE 20 MG TAB PO SCH (08:47)
--- NOTE | 2019-05-31 13:47 | PDOC.HOSPP ---
- Subjective Encounter Date: 05/31/19 Encounter Time: 11:30 Subjective: he is doing well, no acute c/o; I talk to CM regarding the transfer to [facility] - they are working on it. - Objective Vital Signs & Weight: Vital Signs (12 hours) Temp Pulse Resp BP Pulse Ox 05/31/19 10:46 87 16 94 L 05/31/19 08:00 175/95 H 05/31/19 07:24 92 16 94 L 05/31/19 04:00 97.9 F 96 20 172/85 H 93 L 05/31/19 02:19 86 12 Weight Admit Weight 201 lb 11.567 oz Weight 201 lb 11.567 oz Result Diagrams: 05/25/19 05:16 05/26/19 05:51 Hospitalist ROS - Medication Medications: Active Medications Generic Name Dose Route Start Last Admin Trade Name Freq PRN Reason Stop Dose Admin Acetaminophen 650 mg 05/23/19 22:16 05/31/19 12:33 Tylenol PO 650 mg Q4H PRN Administration Headache/Fever/Mild Pain (1-3) Albuterol/Ipratropium 3 ml 05/23/19 22:30 05/31/19 10:46 Duoneb NEB 3 ml [id number] MASHA Administration Famotidine 20 mg 05/24/19 09:00 05/30/19 21:12 Pepcid PO 20 mg BID MASHA Administration Guaifenesin/Dextromethorphan 15 ml 05/24/19 16:26 05/31/19 12:32 Robitussin Dm PO 15 ml Q4H PRN Administration Cough Sodium Chloride 1,000 mls @ 50 mls/hr 05/24/19 10:30 05/31/19 08:46 Normal Saline 0.9% IV Not Given .Q20H MASHA Levofloxacin 750 mg 05/31/19 06:00 05/31/19 06:07 Levaquin PO 750 mg 0600 MASHA Administration Mometasone Furoate/Formoterol Fumar 2 puff 05/24/19 18:30 05/31/19 07:26 Dulera 200 Mcg/5 Mcg Inhaler INH 2 puff BID-RT MASHA Administration Prednisone 40 mg 05/31/19 08:00 05/31/19 08:47 Prednisone PO 40 mg QAM-WM MASHA Administration Saccharomyces Boulardii 250 mg 05/24/19 09:00 05/31/19 08:47 Florastor PO 250 mg DAILY MASHA Administration - Exam General Appearance: NAD, awake alert ENT: normocephalic atraumatic Neck: supple Heart: RRR Respiratory: CTAB Gastrointestinal: normal bowel sounds Psychiatric: normal affect Hosp A/P - Plan (1) Adenocarcinoma of lung Code(s): C34.90 - MALIGNANT NEOPLASM OF UNSP PART OF UNSP BRONCHUS OR LUNG Status: Acute Qualifiers: Laterality: left Qualified Code(s): C34.92 - Malignant neoplasm of unspecified part of left bronchus or lung Plan: Plan for transfer to [facility] for further staging/planning treatment for lung CA (2) Acute respiratory failure with hypoxia Code(s): J96.01 - ACUTE RESPIRATORY FAILURE WITH HYPOXIA Status: Acute Plan: Continue O2 supplementation @ 2L/min NC, Duonebs, Prednisone (3) LLL pneumonia Code(s): J18.9 - PNEUMONIA, UNSPECIFIED ORGANISM Status: Acute Plan: Transition to Levaquin for outpatient mgmt (4) Hypokalemia Code(s): E87.6 - HYPOKALEMIA Status: Acute Plan: Improved, d/c KCL supplements (5) Transaminitis Code(s): R74.0 - NONSPEC ELEV OF LEVELS OF TRANSAMNS & LACTIC ACID DEHYDRGNSE Status: Acute - Plan continue antibiotics, social problems specialist, respiratory therapy, out of bed/ambulate , DVT proph w/SCDs Stable currently Continue Zosyn/Zithromax with plan to transition to Levaquin at d/c -I talk to CM regarding the transfer to [facility] - they are working on it. -not sure, how long he needs to stay here, bef. transfer is effective. -instead of waiting, will c/s oncologist for their eval and help.
[2019-05-31] MEDS: Famotidine 20 MG TAB PO SCH ×2 (15:17→21:05)
[2019-06-01] MEDS: Guaifenesin DM 100-10/5 ML UDCUP PO PRN (05:31)
[2019-06-01] MEDS: Mometasone/Formoterol 120 PUFF INHALER INH SCH ×2 (07:05→18:08)
[2019-06-01] MEDS: Famotidine 20 MG TAB PO SCH ×2 (09:29→20:25)
[2019-06-01] MEDS: Acetaminophen 325 MG TAB PO PRN (09:29)
[2019-06-01] MEDS: Saccharomyces boulardii 250 MG CAP PO SCH (09:29)
[2019-06-01] MEDS: predniSONE 20 MG TAB PO SCH (09:29)
--- NOTE | 2019-06-01 13:27 | PDOC.HOSPP ---
- Subjective Encounter Date: 06/01/19 Encounter Time: 11:25 Subjective: Oncology consult at his facility, and this has been conveyed to the pt; CM note reviewed, pending bed availability at [facility]. lots of dry cough, no hemoptysis. - Objective Vital Signs & Weight: Vital Signs (12 hours) Temp Pulse Resp BP BP Pulse Ox 06/01/19 10:42 97 16 95 06/01/19 07:50 97.9 F 97 18 157/82 H 94 L 06/01/19 06:59 92 16 94 L 06/01/19 04:00 98.2 F 79 20 159/91 H 94 L Weight Admit Weight 201 lb 11.567 oz Weight 201 lb 11.567 oz Result Diagrams: 05/25/19 05:16 05/26/19 05:51 Hospitalist ROS - Medication Medications: Active Medications Generic Name Dose Route Start Last Admin Trade Name Freq PRN Reason Stop Dose Admin Acetaminophen 650 mg 05/23/19 22:16 06/01/19 09:29 Tylenol PO 650 mg Q4H PRN Administration Headache/Fever/Mild Pain (1-3) Albuterol/Ipratropium 3 ml 05/23/19 22:30 06/01/19 10:42 Duoneb NEB 3 ml [id number] MASHA Administration Famotidine 20 mg 05/24/19 09:00 06/01/19 09:29 Pepcid PO 20 mg BID MASHA Administration Guaifenesin/Dextromethorphan 15 ml 05/24/19 16:26 06/01/19 05:31 Robitussin Dm PO 15 ml Q4H PRN Administration Cough Sodium Chloride 1,000 mls @ 50 mls/hr 05/24/19 10:30 05/31/19 21:05 Normal Saline 0.9% IV 1,000 mls .Q20H MASHA Administration Levofloxacin 750 mg 05/31/19 06:00 06/01/19 05:31 Levaquin PO 750 mg 0600 MASHA Administration Mometasone Furoate/Formoterol Fumar 2 puff 05/24/19 18:30 06/01/19 07:05 Dulera 200 Mcg/5 Mcg Inhaler INH 2 puff BID-RT MASHA Administration Prednisone 40 mg 05/31/19 08:00 06/01/19 09:29 Prednisone PO 40 mg QAM-WM MASHA Administration Saccharomyces Nikole 250 mg 05/24/19 09:00 06/01/19 09:29 Florastor PO 250 mg DAILY MASHA Administration - Exam General Appearance: NAD, awake alert Eye: PERRL ENT: normocephalic atraumatic Neck: supple, symmetric Heart: RRR Respiratory: CTAB Gastrointestinal: soft, non-tender, normal bowel sounds Hosp A/P - Plan (1) Adenocarcinoma of lung Code(s): C34.90 - MALIGNANT NEOPLASM OF UNSP PART OF UNSP BRONCHUS OR LUNG Status: Acute Qualifiers: Laterality: left Qualified Code(s): C34.92 - Malignant neoplasm of unspecified part of left bronchus or lung Plan: Plan for transfer to [facility] for further staging/planning treatment for lung CA (2) Acute respiratory failure with hypoxia Code(s): J96.01 - ACUTE RESPIRATORY FAILURE WITH HYPOXIA Status: Acute Plan: Continue O2 supplementation @ 2L/min NC, Duonebs, Prednisone (3) LLL pneumonia Code(s): J18.9 - PNEUMONIA, UNSPECIFIED ORGANISM Status: Acute Plan: Transition to Levaquin for outpatient mgmt (4) Hypokalemia Code(s): E87.6 - HYPOKALEMIA Status: Acute Plan: Improved, d/c KCL supplements (5) Transaminitis Code(s): R74.0 - NONSPEC ELEV OF LEVELS OF TRANSAMNS & LACTIC ACID DEHYDRGNSE Status: Acute - Plan continue antibiotics, social work msw, respiratory therapy, out of bed/ambulate , DVT proph w/SCDs Stable currently -s/p Zosyn/Zithromax --transitioned to Levaquin at d/c -I talk to CM regarding the transfer to [facility] - they are working on it. -instead of waiting, will c/s oncologist for their eval and help. > has to be done at [facility]. -pending transfer, bed availability at [facility].
[2019-06-01] MEDS ORDERED: Guaifenesin DM 100-10/5 ML UDCUP PO SCH (13:30)
[2019-06-01] MEDS: Guaifenesin DM 100-10/5 ML UDCUP PO SCH ×2 (17:50→20:25)
[2019-06-02] MEDS: Guaifenesin DM 100-10/5 ML UDCUP PO SCH ×6 (01:13→20:30)
[2019-06-02] MEDS: Mometasone/Formoterol 120 PUFF INHALER INH SCH ×2 (07:12→18:09)
[2019-06-02] MEDS: Saccharomyces boulardii 250 MG CAP PO SCH (09:08)
[2019-06-02] MEDS: predniSONE 20 MG TAB PO SCH (09:08)
[2019-06-02] MEDS: Famotidine 20 MG TAB PO SCH ×2 (09:08→20:31)
--- NOTE | 2019-06-02 16:02 | PDOC.HOSPP ---
- Subjective Encounter Date: 06/02/19 Encounter Time: 10:40 Subjective: pt having no issues but feels overall fatigued, not feeling good, no specific c/ o like CP, SOB, cough or lack of sleep. just fatigued. - Objective Vital Signs & Weight: Vital Signs (12 hours) Temp Pulse Resp BP Pulse Ox 06/02/19 14:17 93 16 97 06/02/19 10:42 92 16 94 L 06/02/19 08:00 92 L 06/02/19 07:46 97.7 F 100 20 144/84 H 92 L 06/02/19 07:15 90 16 96 06/02/19 07:12 85 16 97 Weight Admit Weight 201 lb 11.567 oz Weight 201 lb 11.567 oz Result Diagrams: 05/25/19 05:16 05/26/19 05:51 Hospitalist ROS - Medication Medications: Active Medications Generic Name Dose Route Start Last Admin Trade Name Freq PRN Reason Stop Dose Admin Acetaminophen 650 mg 05/23/19 22:16 06/01/19 09:29 Tylenol PO 650 mg Q4H PRN Administration Headache/Fever/Mild Pain (1-3) Albuterol/Ipratropium 3 ml 05/23/19 22:30 06/02/19 14:17 Duoneb NEB 3 ml [id number] MASHA Administration Famotidine 20 mg 05/24/19 09:00 06/02/19 09:08 Pepcid PO 20 mg BID MASHA Administration Guaifenesin/Dextromethorphan 15 ml 06/01/19 17:00 06/02/19 12:29 Robitussin Dm PO 15 ml Q4HR MASHA Administration Sodium Chloride 1,000 mls @ 50 mls/hr 05/24/19 10:30 05/31/19 21:05 Normal Saline 0.9% IV 1,000 mls .Q20H MASHA Administration Levofloxacin 750 mg 05/31/19 06:00 06/02/19 05:15 Levaquin PO 750 mg 0600 MASHA Administration Mometasone Furoate/Formoterol Fumar 2 puff 05/24/19 18:30 06/02/19 07:12 Dulera 200 Mcg/5 Mcg Inhaler INH 2 puff BID-RT MASHA Administration Prednisone 40 mg 05/31/19 08:00 06/02/19 09:08 Prednisone PO 40 mg QAM-WM MASHA Administration Saccharomyces Nikole 250 mg 05/24/19 09:00 06/02/19 09:08 Florastor PO 250 mg DAILY MASHA Administration - Exam General Appearance: NAD, awake alert Eye: PERRL ENT: normocephalic atraumatic Neck: supple Heart: RRR Respiratory: CTAB Gastrointestinal: normal bowel sounds Neurological: cranial nerve grossly intact, no focal deficits Musculoskeletal: normal tone Hosp A/P - Plan (1) Adenocarcinoma of lung Code(s): C34.90 - MALIGNANT NEOPLASM OF UNSP PART OF UNSP BRONCHUS OR LUNG Status: Acute Qualifiers: Laterality: left Qualified Code(s): C34.92 - Malignant neoplasm of unspecified part of left bronchus or lung Plan: Plan for transfer to [facility] for further staging/planning treatment for lung CA (2) Acute respiratory failure with hypoxia Code(s): J96.01 - ACUTE RESPIRATORY FAILURE WITH HYPOXIA Status: Acute Plan: Continue O2 supplementation @ 2L/min NC, Duonebs, Prednisone (3) LLL pneumonia Code(s): J18.9 - PNEUMONIA, UNSPECIFIED ORGANISM Status: Acute Plan: Transition to Levaquin for outpatient mgmt (4) Hypokalemia Code(s): E87.6 - HYPOKALEMIA Status: Acute Plan: Improved, d/c KCL supplements (5) Transaminitis Code(s): R74.0 - NONSPEC ELEV OF LEVELS OF TRANSAMNS & LACTIC ACID DEHYDRGNSE Status: Acute - Plan continue antibiotics, public health social worker, respiratory therapy, out of bed/ambulate , DVT proph w/SCDs Stable currently -s/p Zosyn/Zithromax --transitioned to Levaquin at d/c -I talk to CM regarding the transfer to [facility] - they are working on it. -instead of waiting, will c/s oncologist for their eval and help. > has to be done at [facility]. -pending transfer, bed availability at [facility]. Can we try to transfer him to [facility]? [facility]? instead of waiting for the bed availability at [facility] i will d/w CM.
[2019-06-02] MEDS: Sodium Chloride 0.9% 1,000 ML IV SCH ×2 (17:31→20:32)
[2019-06-03] MEDS: Guaifenesin DM 100-10/5 ML UDCUP PO SCH ×6 (01:50→20:10)
[2019-06-03] MEDS: Mometasone/Formoterol 120 PUFF INHALER INH SCH ×2 (06:54→18:55)
[2019-06-03] MEDS: Saccharomyces boulardii 250 MG CAP PO SCH (08:07)
[2019-06-03] MEDS: Famotidine 20 MG TAB PO SCH ×2 (08:07→20:10)
[2019-06-03] MEDS: predniSONE 20 MG TAB PO SCH (08:07)
--- NOTE | 2019-06-03 13:04 | PDOC.HOSPP ---
- Subjective Encounter Date: 06/03/19 Encounter Time: 09:30 non-verbal Subjective: doing well, talk to CM, awaiting for bed. pt still feels overall not good. - Objective Vital Signs & Weight: Vital Signs (12 hours) Temp Pulse Resp BP Pulse Ox 06/03/19 10:30 92 16 94 L 06/03/19 07:18 98 F 96 18 140/79 93 L 06/03/19 06:53 94 20 94 L 06/03/19 02:16 95 16 94 L Weight Admit Weight 201 lb 11.567 oz Weight 201 lb 11.567 oz I&O: 06/02/19 06/03/19 06/04/19 06:59 06:59 06:59 Intake Total 950 Output Total 200 Balance 750 Result Diagrams: 05/25/19 05:16 05/26/19 05:51 Hospitalist ROS - Medication Medications: Active Medications Generic Name Dose Route Start Last Admin Trade Name Freq PRN Reason Stop Dose Admin Acetaminophen 650 mg 05/23/19 22:16 06/01/19 09:29 Tylenol PO 650 mg Q4H PRN Administration Headache/Fever/Mild Pain (1-3) Albuterol/Ipratropium 3 ml 05/23/19 22:30 06/03/19 10:30 Duoneb NEB 3 ml [id number] MASHA Administration Famotidine 20 mg 05/24/19 09:00 06/03/19 08:07 Pepcid PO 20 mg BID MASHA Administration Guaifenesin/Dextromethorphan 15 ml 06/01/19 17:00 06/03/19 12:00 Robitussin Dm PO 15 ml Q4HR MASHA Administration Sodium Chloride 1,000 mls @ 50 mls/hr 05/24/19 10:30 06/02/19 20:32 Normal Saline 0.9% IV 1,000 mls .Q20H MASHA Administration Levofloxacin 750 mg 05/31/19 06:00 06/03/19 05:38 Levaquin PO 750 mg 0600 MASHA Administration Mometasone Furoate/Formoterol Fumar 2 puff 05/24/19 18:30 06/03/19 06:54 Dulera 200 Mcg/5 Mcg Inhaler INH 2 puff BID-RT MASHA Administration Prednisone 40 mg 05/31/19 08:00 06/03/19 08:07 Prednisone PO 40 mg QAM-WM MASHA Administration Saccharomyces Nikole 250 mg 05/24/19 09:00 06/03/19 08:07 Florastor PO 250 mg DAILY MASHA Administration - Exam General Appearance: NAD, awake alert Eye: PERRL ENT: normocephalic atraumatic Neck: supple Heart: RRR Respiratory: CTAB Gastrointestinal: normal bowel sounds Hosp A/P - Plan (1) Adenocarcinoma of lung Code(s): C34.90 - MALIGNANT NEOPLASM OF UNSP PART OF UNSP BRONCHUS OR LUNG Status: Acute Qualifiers: Laterality: left Qualified Code(s): C34.92 - Malignant neoplasm of unspecified part of left bronchus or lung Plan: Plan for transfer to [facility] for further staging/planning treatment for lung CA (2) Acute respiratory failure with hypoxia Code(s): J96.01 - ACUTE RESPIRATORY FAILURE WITH HYPOXIA Status: Acute Plan: Continue O2 supplementation @ 2L/min NC, Duonebs, Prednisone (3) LLL pneumonia Code(s): J18.9 - PNEUMONIA, UNSPECIFIED ORGANISM Status: Acute Plan: Transition to Levaquin for outpatient mgmt (4) Hypokalemia Code(s): E87.6 - HYPOKALEMIA Status: Acute Plan: Improved, d/c KCL supplements (5) Transaminitis Code(s): R74.0 - NONSPEC ELEV OF LEVELS OF TRANSAMNS & LACTIC ACID DEHYDRGNSE Status: Acute - Plan continue antibiotics, social scientist, respiratory therapy, out of bed/ambulate , DVT proph w/SCDs Stable currently -s/p Zosyn/Zithromax --transitioned to Levaquin -I talk to CM regarding the transfer to [facility] - they are working on it. -instead of waiting, will c/s oncologist for their eval and help. > has to be done at [facility]. -pending transfer, bed availability at [facility]. on prednisone and levaquin. pending placement.
[2019-06-03] MEDS: Acetaminophen 325 MG TAB PO PRN (20:15)
[2019-06-04] MEDS: Guaifenesin DM 100-10/5 ML UDCUP PO SCH ×3 (01:54→07:58)
[2019-06-04] MEDS: Mometasone/Formoterol 120 PUFF INHALER INH SCH (07:07)
[2019-06-04] MEDS: predniSONE 20 MG TAB PO SCH (07:58)
[2019-06-04] MEDS: Saccharomyces boulardii 250 MG CAP PO SCH (07:58)
[2019-06-04] MEDS: Famotidine 20 MG TAB PO SCH (07:58)
[2019-06-04 08:18] VITALS: BP 150/89; TEMP 98
--- NOTE | 2019-06-05 01:01 | DIS ---
DATE OF ADMISSION: 05/23/2019 DATE OF DISCHARGE: 06/04/2019 DISCHARGE DIAGNOSES: 1. Adenocarcinoma of the lung. 2. Acute respiratory failure with hypoxia. 3. Left lower lobe pneumonia. 4. Hypokalemia. 5. Transaminitis, resolved. His other comorbidities are; 1. Infrarenal abdominal aortic aneurysm. 2. History of pleural effusion. 3. Mild intermittent asthma. 4. Gastroesophageal reflux disease. 5. Benign prostatic hyperplasia. 6. Ongoing 50 pack year tobacco history. 7. History of pancreatic cancer in the family. 8. Postobstructive pneumonia secondary to adenocarcinoma of the lung. 9. Stage IIIB adenocarcinoma. DISCHARGE MEDICATIONS: 1. Ranitidine 150 mg twice a day. 2. Prednisone 10 mg daily. 3. Mometasone-Formoterol 2 puffs as needed. 4. Loratadine 10 mg daily. 5. Levaquin 750 mg daily for 10 days. 6. DuoNeb as needed. 7. Guaifenesin 15 mL q.4 hours as needed. HOSPITAL COURSE: This is a 63-year-old male, admitted with shortness of breath and lightheadedness and had acute hypoxic respiratory failure and left lower lobe obstructive pneumonia with sepsis. Left lung mass diagnosed. After hospitalization for his shortness of breath and respiratory failure, he had a biopsy of the lung mass, which came back as adenocarcinoma, stage IIIB disease and possibly stage IV if the abdominal nodes are cancerous. In this regard, he has to be treated by Medical Oncology and I made an attempt to contact our Oncologist. It appears that the care will be started at [facility] facility. His hospital stay is delayed as waiting for the bed availability at his facility. During the interim, the patient did well without any further decline in his current medical condition. He is stable and is transferred to the [facility] on 27 evening. DISCHARGE INSTRUCTIONS: 1. Activity: With supervision. 2. Diet: Healthy heart diet. 3. Followup: With the Oncologist at [facility] Facility for his new diagnosis of left lung mass/adenocarcinoma. TIME SPENT: Discharge time took over 30 minutes. Job ID: [id number] [id number]
== END 2019-06-04 08:07 | DRG 166 ==
LOC: ERS 16:33 → T4-B 21:27
PROVIDERS: ADMIT Internal Medicine; ATTEND Internal Medicine
PROC: 0BBH8ZX Excision of Lung Lingula, Via Natural or Artificial Opening Endoscopic, Diagnostic (ICD-10-PCS; principal; 2019-05-24)
PROC: 0BB88ZX Excision of Left Upper Lobe Bronchus, Via Natural or Artificial Opening Endoscopic, Diagnostic (ICD-10-PCS; 2019-05-24)
PROC: 0BDB8ZX Extraction of Left Lower Lobe Bronchus, Via Natural or Artificial Opening Endoscopic, Diagnostic (ICD-10-PCS; 2019-05-24)
PROC: 0BD88ZX Extraction of Left Upper Lobe Bronchus, Via Natural or Artificial Opening Endoscopic, Diagnostic (ICD-10-PCS; 2019-05-24)
PROC: 0B968ZZ Drainage of Right Lower Lobe Bronchus, Via Natural or Artificial Opening Endoscopic (ICD-10-PCS; 2019-05-24)
PROC: 0B948ZZ Drainage of Right Upper Lobe Bronchus, Via Natural or Artificial Opening Endoscopic (ICD-10-PCS; 2019-05-24)
DX: C34.92 Malignant neoplasm of unspecified part of left bronchus or lung (principal); J96.01 Acute respiratory failure with hypoxia; J18.9 Pneumonia, unspecified organism; E87.6 Hypokalemia; I71.4 Abdominal aortic aneurysm, without rupture; J45.20 Mild intermittent asthma, uncomplicated; K21.9 Gastro-esophageal reflux disease without esophagitis; N40.0 Benign prostatic hyperplasia without lower urinary tract symptoms; F17.200 Nicotine dependence, unspecified, uncomplicated; Z80.8 Family history of malignant neoplasm of other organs or systems; R74.0 Nonspecific elevation of levels of transaminase and lactic acid dehydrogenase [LDH]
CPT/HCPCS: 36415; 71045; 71275; 80048; 80053; 83605; 83735; 84484; 85007; 85025; 85027; 87040; 87070; 87102; 87116; 87205; 87206; 88112; 88305; 88313; 88341; 88342; 93005; 93970; 94640; 94760; 96361; 96365; 96372; J0456; J0696; J1650; J2001; J2543; J2704; J2920; J3010; J3490; J7050; J7512; J7620; Q9967